=== PATIENT | female | born 2000 ===

== ENCOUNTER 2018-04-28 07:00 | Day surgery (SDC) | payer OTHER ==
[~2018-04-28] VITALS: Ht 157.5 cm; Wt 81.6 kg
== END 2018-04-28 21:00 | disposition home or self-care (01) ==
LOC: CIR.AMB 07:00 → ER 07:19 → O/R 13:35 → SEC-K 13:35 → ER 13:35 → EDSTATUS 16:00 → SEC-K 16:56 → O/R 16:56 → CIR.AMB 21:00
DX: O02.1 Missed abortion (principal); Z3A.09 9 weeks gestation of pregnancy